=== PATIENT | female | born 1955 | race Caucasian/White ===

== ENCOUNTER 2020-12-17 15:22 | Emergency (ER) | payer MEDICARE ==
[~2020-12-17] VITALS: Ht 165.1 cm; Wt 122.5 kg
[~2020-12-17 15:22] MED LIST: MOTRIN800 MG PO; ZIAC 2.5 MG-6.21 TAB PO
== END 2020-12-17 20:34 | disposition home or self-care (01) ==
LOC: ED 15:22
DX: U07.1 COVID-19 (principal); Z88.6 Allergy status to analgesic agent; Z79.899 Other long term (current) drug therapy